=== PATIENT | female | born 2000 | race Caucasian/White ===

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

== ENCOUNTER 2019-08-14 07:55 | Emergency (ER) | payer OTHER ==
[2019-08-14 08:00] VITALS: BP 99/48; PULSE 64; TEMP 97.8; BMI 25.8
--- NOTE | 2019-08-14 08:56 | PDOC ---
History of Present Illness - General Chief Complaint: Eye Problem Stated Complaint: eye pain Time Seen by Provider: 08/14/19 08:43 History Source: Patient - History of Present Illness Timing/Duration: other Past History - Past Medical History Allergies/Adverse Reactions: Allergies Allergy/AdvReac Type Severity Reaction Status Date / Time No Known Allergies Allergy Verified 08/14/19 07:56 Home Medications: Ambulatory Orders Bacitracin Ophthalmic Oint - 1 applic Q3H 10 Days #1 tube 08/14/19 COPD: No Psychiatric Problems: No Thyroid Disease: (MOTHER DENIES) - Immunization History Immunization Up to Date: Yes - Psycho Social/Smoking Cessation Hx Smoking Status: No Smoking History: Current every day smoker Have you smoked in the past 12 months: Yes Number of Cigarettes Smoked Daily: 1 Information on smoking cessation initiated: No Hx Alcohol Use: No Drug/Substance Use Hx: Yes Substance Use Type: None Review of Systems - Review of Systems Constitutional: No: Chills, Fever HEENTM: Yes: Eye Pain. No: Blurred Vision, Tearing *Physical Exam - Vital Signs Last Vital Signs Temp Pulse Resp BP Pulse Ox 97.8 F 64 18 99/48 L 100 08/14/19 07:56 08/14/19 07:56 08/14/19 07:56 08/14/19 07:56 08/14/19 07:56 - Physical Exam General Appearance: Yes: Appropriately Dressed. No: Apparent Distress HEENT: positive: EOMI, Normal Voice, Other (sty to L lower lid). negative: Scleral Icterus (R), Scleral Icterus (L) Respiratory/Chest: negative: Respiratory Distress Integumentary: positive: Dry, Warm Neurologic: positive: Fully Oriented, Alert, Normal Mood/Affect Medical Decision Making - Medical Decision Making 08/14/19 08:57 -year-old female no significant history here with left lower lid pain swelling and itching times several days. Apply warm compress with no improvement. No fever or chills see exam Sty -Dc w/ abx ointment and warm compresses, claritin for pruritis (? allergic component) -Ophtho f/u as needed 08/14/19 09:26 BP baseline per pt Discharge - Discharge Information Problems reviewed: Yes Clinical Impression/Diagnosis: Sty Qualifiers: Laterality: left Eyelid: lower Qualified Code(s): H00.015 - Hordeolum externum left lower eyelid Condition: Good Disposition: HOME - Additional Discharge Information Prescriptions: Bacitracin Ophthalmic Oint - 1 applic Q3H 10 Days #1 tube - Follow up/Referral Referrals: Stephanie Weiner MD [Staff Physician] - - Patient Discharge Instructions Patient Printed Discharge Instructions: DI for Hordeolum Additional Instructions: Continue applying warm compress and use bacitracin ointment as directed For itching you can take Claritin or Zyrtec [id number] If symptoms worsen, please follow-up with ophthalmology - Post Discharge Activity
== END 2019-08-14 09:26 | disposition home or self-care (01) ==
LOC: JERFT 07:55
DX: H00.015 Hordeolum externum left lower eyelid (principal)
CPT/HCPCS: 99283-25

== ENCOUNTER 2020-06-01 00:57 | Emergency (ER) | payer OTHER ==
[2020-06-01 01:16] VITALS: BMI 28.2
[2020-06-01] MEDS ORDERED: SODIUM CHLORIDE 1,000 ML IV STA (01:41)
[2020-06-01] MEDS ORDERED: PANTOPRAZOLE SODIUM 40 MG VIAL IVPUSH ONE (01:41)
[2020-06-01] MEDS ORDERED: ONDANSETRON 4 MG/2 ML VIAL IVPUSH ONE (01:41)
[2020-06-01] MEDS ORDERED: PANTOPRAZOLE SODIUM 40 MG/100 ML BAG IVPB ONE (01:46)
[2020-06-01] MEDS ORDERED: ONDANSETRON 4 MG/2 ML VIAL ONE (01:47)
[2020-06-01 02:42] LABS: HEMATOCRIT 41.3 % (32.4-45.2); HEMOGLOBIN 13.7 GM/dL (10.7-15.3); MCH 30.6 pg (25.7-33.7); MCHC 33.2 g/dl (32.0-36.0); MEAN PLT VOLUME 9.3 fl (7.5-11.1); PLATELET COUNT 261 K/MM3 (134-434); RBC 4.48 M/mm3 (3.60-5.2); RDW 15.2 % (11.6-15.6); WHITE BLOOD COUNT 6.1 K/mm3 (4.0-10.0)
[2020-06-01 03:05] LABS: POTASSIUM 5.9 mmol/L (3.5-5.1)
[2020-06-01 03:07] LABS: CALCIUM 8.9 mg/dL (8.5-10.1)
[2020-06-01 03:08] LABS: BLOOD UREA NITROGEN 17.6 mg/dL (7-18)
[2020-06-01 03:11] LABS: CREATININE 0.8 mg/dL (0.55-1.3)
[2020-06-01 03:12] LABS: BILIRUBIN,TOTAL 0.4 mg/dL (0.2-1); TOT PROT 7.7 g/dl (6.4-8.2)
[2020-06-01 03:52] LABS: HCG,QUALITATIVE URINE Negative
[2020-06-01 03:54] LABS: EPI CELLS >36 /uL (0-25.1); HYALINE CASTS 11 /uL (0-3.1); URINE APPEARANCE CLOUDY; URINE BACTERIA 2822 /uL (0-1359); URINE BILIRUBIN NEGATIVE (NEGATIVE); URINE COLOR YELLOW; URINE GLUCOSE (UA) NEGATIVE (NEGATIVE); URINE KETONE 2+ (NEGATIVE); URINE LEUK ESTERASE 1+ (NEGATIVE); URINE NITRITE NEGATIVE (NEGATIVE); URINE PROTEIN TRACE (NEGATIVE); URINE RBC 39 /uL (0-23.9); URINE WBC 138 /uL (0-25.8)
[2020-06-01 04:40] VITALS: BP 118/68; PULSE 65; TEMP 98
== END 2020-06-01 04:40 | disposition home or self-care (01) ==
LOC: JER 00:57
PROC: 3E033NZ Introduction of Analgesics, Hypnotics, Sedatives into Peripheral Vein, Percutaneous Approach (ICD-10-PCS; principal; 2020-06-01)
PROC: 3E033GC Introduction of Other Therapeutic Substance into Peripheral Vein, Percutaneous Approach (ICD-10-PCS; 2020-06-01)
PROC: 3E0337Z Introduction of Electrolytic and Water Balance Substance into Peripheral Vein, Percutaneous Approach (ICD-10-PCS; 2020-06-01)
DX: R11.2 Nausea with vomiting, unspecified (principal); N39.0 Urinary tract infection, site not specified
CPT/HCPCS: 36415; 80053; 81003; 83690; 84703; 85027; 93005; 93010; 99285-25

== ENCOUNTER 2021-02-25 | Inpatient (IN) | payer OTHER ==
[~2021-02-25] MED LIST: DEXTROSE 5%-LACTATED RINGERS 1,000 ML IV SCH
[2021-02-25] MEDS ORDERED: DINOPROSTONE 10 MG VAGINAL SUPPOSITORY VG ONE (02:15)
[2021-02-25 05:04] VITALS: BMI 35.7
[2021-02-25] MEDS ORDERED: AZITHROMYCIN 500 MG TABLET PO ONE (07:53)
[2021-02-25] MEDS ORDERED: OXYTOCIN 30 UNITS in 0.9% NS 30 UNIT/500 ML INFUS.BAG IVPB SCH (08:00)
[2021-02-25] MEDS ORDERED: ELECTROLYTE-148 SOLN 1,000 ML IV SCH (08:00)
[2021-02-25] MEDS ORDERED: BUTORPHANOL TARTRATE 1 MG/ML VIAL ONE (09:03)
[2021-02-25] MEDS ORDERED: PROMETHAZINE HCL 25 MG/1 ML VIAL IVPB PRN (09:03)
[2021-02-25] MEDS ORDERED: PROMETHAZINE HCL 25 MG/1 ML VIAL ONE (09:03)
[2021-02-25] MEDS ORDERED: BUTORPHANOL TARTRATE 1 MG/ML VIAL IVPUSH ONE (09:15)
[2021-02-25] MEDS ORDERED: AMPICILLIN SODIUM 2 GM VIAL ONE (10:12)
[2021-02-25] MEDS ORDERED: AMPICILLIN - 2 GM in SODIUM CHLORIDE 100 ML IVPB ONE (10:14)
[2021-02-25] MEDS ORDERED: LIDOCAINE HCL 1% PRESERVATIVE FREE - 30ML VIAL ONE (10:45)
[2021-02-25] MEDS ORDERED: OXYTOCIN 20 UNITS in 0.9% NS 20 UNIT/1,000 ML INFUS.BAG IV ONE (10:46)
[2021-02-25] MEDS ORDERED: BENZOCAINE 20% 57 GM BOTTLE TP PRN (13:39)
[2021-02-25] MEDS ORDERED: ACETAMINOPHEN 325 MG TABLET (FP) PO PRN (13:39)
[2021-02-25] MEDS ORDERED: METHYLERGONOVINE MALEATE 0.2 MG/1 ML AMP IM PRN (13:39)
[2021-02-25] MEDS ORDERED: BENZOCAINE 28 GM HEMORRHOIDAL OINTMENT TP PRN (13:39)
[2021-02-25] MEDS ORDERED: BISACODYL 10 MG SUPP.RECT RC PRN (13:39)
[2021-02-25] MEDS ORDERED: WITCH HAZEL 50% (TUCKS) 40 PAD/JAR PAD TP PRN (13:39)
[2021-02-25] MEDS ORDERED: OXYTOCIN 20 UNITS in 0.9% NS 20 UNIT/1,000 ML INFUS.BAG IV SCH (13:45)
[2021-02-25] MEDS: IBUPROFEN 600 MG TABLET (FP) PO PRN (21:33)
[2021-02-26 10:09] LABS: BASO % 0.3 % (0-2.0); EOS % 0.4 % (0-4.5); HEMATOCRIT 28.8 % (32.4-45.2); HEMOGLOBIN 10.1 GM/dL (10.7-15.3); LYMPH % 15.1 % (8-40); MCH 32.2 pg (25.7-33.7); MEAN CELL VOLUME 91.8 fl (80-96); MEAN PLT VOLUME 8.5 fl (7.5-11.1); MONO % 9.2 % (3.8-10.2); PLATELET COUNT 186 10^3/uL (134-434); RBC 3.13 M/mm3 (3.60-5.2); RDW 14.4 % (11.6-15.6)
[2021-02-26] MEDS: IBUPROFEN 600 MG TABLET (FP) PO PRN ×2 (10:42→18:08)
[2021-02-26] MEDS ORDERED: SENNOSIDES/DOCUSATE COMBO (SENNA PLUS) TABLET (UD) PO PRN (22:00)
[2021-02-27] MEDS: IBUPROFEN 600 MG TABLET (FP) PO PRN (01:41)
[2021-02-27 14:30] VITALS: BP 117/76; PULSE 80; TEMP 97.8
== END 2021-02-27 12:15 | disposition home or self-care (01) | DRG 560 ==
LOC: JLDR → J3W 13:45
PROVIDERS: ADMIT Specialist; ATTEND Specialist
PROC: 10E0XZZ Delivery of Products of Conception, External Approach (ICD-10-PCS; principal; 2021-02-25)
PROC: 10907ZC Drainage of Amniotic Fluid, Therapeutic from Products of Conception, Via Natural or Artificial Opening (ICD-10-PCS; 2021-02-25)
PROC: 3E0P7VZ Introduction of Hormone into Female Reproductive, Via Natural or Artificial Opening (ICD-10-PCS; 2021-02-25)
PROC: 0W8NXZZ Division of Female Perineum, External Approach (ICD-10-PCS; 2021-02-25)
DX: O98.82 Other maternal infectious and parasitic diseases complicating childbirth (principal); B95.1 Streptococcus, group B, as the cause of diseases classified elsewhere; O99.214 Obesity complicating childbirth; E66.9 Obesity, unspecified; O98.32 Other infections with a predominantly sexual mode of transmission complicating childbirth; A74.9 Chlamydial infection, unspecified; Z3A.39 39 weeks gestation of pregnancy; Z37.0 Single live birth
CPT/HCPCS: 36415; 59409; 80053; 85025; 85027; 85610; 85730; 86780; 86850; 86900; 86901; 87389; C9803; U0003; U0005

== ENCOUNTER 2021-09-03 13:57 | Emergency (ER) | payer OTHER ==
[2021-09-03 14:06] VITALS: BP 138/90; PULSE 87; TEMP 97.5; BMI 31.6
== END 2021-09-03 15:29 | disposition home or self-care (01) ==
LOC: JERFT 13:57
PROC: 0HQ1XZZ Repair Face Skin, External Approach (ICD-10-PCS; principal; 2021-09-03)
DX: S01.81XA Laceration without foreign body of other part of head, initial encounter (principal); W26.8XXA Contact with other sharp object(s), not elsewhere classified, initial encounter
CPT/HCPCS: 99282-25

== ENCOUNTER → 2022-05-08 | Emergency (ER) | payer OTHER ==
[2022-05-08 12:26] VITALS: BP 105/66; PULSE 89; RESP 17; TEMP 98.1; BMI 25.7
== END ==
LOC: JER 10:47
DX: Z20.822 Contact with and (suspected) exposure to COVID-19 (principal)
CPT/HCPCS: 99281-25

== ENCOUNTER 2024-09-12 13:25 | Emergency (ER) | payer OTHER ==
[2024-09-12 13:35] VITALS: BP 116/56; PULSE 84; RESP 18; TEMP 98.8; BMI 25.4
[2024-09-12] MEDS ORDERED: ACETAMINOPHEN 500 MG TABLET (FP) ONE (14:15)
[2024-09-12] MEDS ORDERED: FAMOTIDINE 20 MG/50 ML IVPB 20 MG/50 ML MG IVPB ONE (14:15)
[2024-09-12 14:16] LABS: BASO % 0.2 % (0-2.0); EOS % 0.3 % (0-4.5); HEMATOCRIT 37.6 % (32.4-45.2); HEMOGLOBIN 12.7 GM/dL (10.7-15.3); LYMPH % 13.8 % (8-40); MCH 31.1 pg (25.7-33.7); MCHC 33.6 g/dl (32.0-36.0); MEAN CELL VOLUME 92.6 fl (80-96); MEAN PLT VOLUME 8.3 fl (7.5-11.1); MONO % 11.9 % (3.8-10.2); NEUT % 73.8 % (42.8-82.8); PLATELET COUNT 228 10^3/uL (134-434); RBC 4.07 M/mm3 (3.60-5.2); WHITE BLOOD COUNT 5.9 K/mm3 (4.0-10.0)
[2024-09-12] MEDS: ACETAMINOPHEN 500 MG TABLET (FP) PO ONE (14:20)
[2024-09-12] MEDS: FAMOTIDINE 20 MG/50 ML IVPB 20 MG/50 ML MG IVPB ONE (14:20)
[2024-09-12 14:39] LABS: ALBUMIN 3.7 g/dl (3.4-5.0)
[2024-09-12 14:42] LABS: CREATININE 0.6 mg/dL (0.55-1.3)
[2024-09-12 14:43] LABS: BILIRUBIN,TOTAL 0.5 mg/dL (0.2-1); TOT PROT 6.8 g/dl (6.4-8.2)
[2024-09-12 16:20] LABS: EPI CELLS 19 /uL (0-25.1); HYALINE CASTS 0 /uL (0-3.1); URINE APPEARANCE CLEAR; URINE BACTERIA 8242 /uL (0-1359); URINE BILIRUBIN NEGATIVE (NEGATIVE); URINE COLOR YELLOW; URINE GLUCOSE (UA) NEGATIVE (NEGATIVE); URINE KETONE NEGATIVE (NEGATIVE); URINE LEUK ESTERASE TRACE (NEGATIVE); URINE NITRITE NEGATIVE (NEGATIVE); URINE PROTEIN NEGATIVE (NEGATIVE); URINE RBC 7 /uL (0-23.9); URINE UROBILINOGEN 0.2 mg/dL (0.2-1.0); URINE WBC 33 /uL (0-25.8)
== END 2024-09-12 20:26 | disposition home or self-care (01) ==
LOC: JER 13:25
PROC: 3E033GC Introduction of Other Therapeutic Substance into Peripheral Vein, Percutaneous Approach (ICD-10-PCS; principal; 2024-09-12)
DX: N30.00 Acute cystitis without hematuria (principal); K83.8 Other specified diseases of biliary tract; R10.11 Right upper quadrant pain; R10.13 Epigastric pain; R09.81 Nasal congestion; R68.83 Chills (without fever)
CPT/HCPCS: 0241U-QW; 36415; 71046-TC-FY; 76705-TC; 76775-TC; 80053; 81003; 83690; 84703; 85025; 87086; 87186; 93308; 99285-25